=== PATIENT | male | born 1965 | race Asian ===

== ENCOUNTER 2017-06-01 08:20 | Day surgery (SDC) | payer OTHER ==
[2017-06-01 08:24] VITALS: BMI 32.1
--- NOTE | 2017-06-01 08:58 | PDOC ---
History of Present Illness <Zachary Vigil - Last Filed: 06/01/17 13:02> - General History Source: Patient Exam Limitations: No Limitations - History of Present Illness Initial Comments: 06/01/17 10:32 The patient is a 52 year old male, with hypertension and hyperlipidemia, who presents to the emergency department complaining of abdominal pain since last night. The patient reports the pain is diffuse, but worse in the right lower quadrant. Patient reports increased belching and flatulence since the onset of his symptoms. He denies any associated nausea, vomiting, diarrhea, constipation , melena, or hematochezia. Patient states he went to the gym yesterday and lifted some weights. He reports some chest pain, which he relates to exercising , but denies any shortness of breath, diaphoresis, or palpitations. He denies any fever or chills. He denies any dysuria, hematuria, frequency, or urgency. He denies any recent travel or sick contacts. Allergies: None reported Past Surgical History: None reported Social History: Non smoker. No ETOH or drug use. PCP: Dr. Osborne <Riccardo Guerra - Last Filed: 06/01/17 13:58> - General Chief Complaint: Pain, Acute Stated Complaint: PAIN Time Seen by Provider: 06/01/17 08:56 Past History - Past Medical History HTN: Yes Hypercholesterolemia: Yes - Psycho/Social/Smoking Cessation Hx Anxiety: No Suicidal Ideation: No Smoking History: Never smoked Hx Alcohol Use: No Drug/Substance Use Hx: No Substance Use Type: None <Zachary Vigil - Last Filed: 06/01/17 13:02> <Riccardo Guerra - Last Filed: 06/01/17 13:58> - Past Medical History Allergies/Adverse Reactions: Allergies Allergy/AdvReac Type Severity Reaction Status Date / Time No Known Allergies Allergy Verified 06/01/17 08:22 Home Medications: Ambulatory Orders Amlodipine Besylate [Norvasc -] 5 mg PO DAILY 06/01/17 Metoprolol Tartrate [Lopressor -] 25 mg PO DAILY 06/01/17 Simvastatin 20 mg PO DAILY 06/01/17 Review of Systems - Review of Systems Able to Perform ROS?: Yes Comments:: 06/01/17 10:32 Constitutional: Pt denies Fever, Chills, weakness HEENT: Denies vision changes, sore throat Respiratory: Denies cough, sob, hemoptysis Cardiac: Denies palpitations, light headedness, leg swelling Abd/GI: +Reports abdominal pain worse in RLQ, +belching Denies nausea, vomiting , blood per rectum, melena, diarrhea : Denies dysuria, frequency, discharge Musculoskelatal: Denies joint swelling Skin: Denies bruising, erythema, rash Neurological: Denies headache, numbness, focal weakness, tingling, ataxia, weakness Hematologic: Denies anemia, easy bruising, easy bleeding <Guerra,Giomilsy - Last Filed: 06/01/17 13:58> *Physical Exam - Vital Signs Last Vital Signs Temp Pulse Resp BP Pulse Ox 98.3 F 81 18 127/74 98 06/01/17 08:21 06/01/17 08:21 06/01/17 08:21 06/01/17 08:21 06/01/17 08:21 <Musa,Zachary - Last Filed: 06/01/17 13:02> - Vital Signs Last Vital Signs Temp Pulse Resp BP Pulse Ox 98.3 F 81 18 127/74 98 06/01/17 08:21 06/01/17 08:21 06/01/17 08:21 06/01/17 08:21 06/01/17 08:21 - Physical Exam Comments: 06/01/17 10:32 GENERAL: The patient is awake, alert, and fully oriented, Nontoxic - in no acute distress. HEAD: Normocephalic, atraumatic. EYES: extraocular movements intact, sclera anicteric, conjunctiva clear. ENT: Normal voice, Moist mucous membranes. NECK: Normal range of motion, supple LUNGS: Breath sounds equal, clear to auscultation bilaterally. No wheezes, no rhonchi, no rales. HEART: Regular rate and rhythm, normal S1 and S2 without murmur, rub or gallop. ABDOMEN: mild RLQ tenderness, normoactive bowel sounds. No guarding, no rebound. No CVA tenderness EXTREMITIES: Normal range of motion, no edema. No clubbing or cyanosis. No cords, erythema, or tenderness. NEUROLOGICAL: No facial assymetry, Normal speech, moving all 4 extremities spontaneously and symmetrically PSYCH: Normal mood, normal affect. SKIN: Warm, Dry, normal turgor, <Guerra,Giomilsy - Last Filed: 06/01/17 13:58> Heart Score/ECG Review - ECG Impressions Comment:: 06/01/17 11:36 Twelve-lead EKG was performed and reviewed by me. There is normal sinus rhythm with a normal rate. Rate of 73 The axis is normal. The intervals are normal. Q wave in lead 3 <Zachary Vigil - Last Filed: 06/01/17 13:02> ED Treatment Course - LABORATORY CBC & Chemistry Diagram: 06/01/17 10:00 06/01/17 10:00 <Zachary Vigil - Last Filed: 06/01/17 13:02> - LABORATORY CBC & Chemistry Diagram: 06/01/17 10:00 06/01/17 10:00 - RADIOLOGY Radiograph Interpretation: 06/01/17 13:08 EXAM: CT Abdomen and Pelvis INTERPRETED BY: Dr. Flaherty REVIEWED BY: Dr. Vigil IMPRESSION: Findings consistent with acute appendicitis without extraluminal air or abscess formation. Low-attenuation right adrenal mass with mild heterogeneity measuring 2.8 x 2.4 cm. Although statistically it may represent an adrenal adenoma, further evaluation with MRI is needed. Case discussed with Dr. Vigil, emergency room attending physician and Dr. Griffin, surgery attending physician. EXAM: CXR INTERPRETED BY: Dr. Jacobsen REVIEWED BY: Dr. Vigil IMPRESSION: No evidence of active pulmonary disease. - Medications Given in the ED: ED Medications Discontinued Medications Generic Name Dose Route Start Last Admin Trade Name Freq PRN Reason Stop Dose Admin Famotidine/Sodium Chloride 20 50 mls @ 100 mls/hr 06/01/17 09:27 06/01/17 10:09 mg/ Miscellaneous IVPB 06/01/17 09:56 100 mls/hr ONCE ONE Administration Sodium Chloride 500 mls @ 500 mls/hr 06/01/17 09:27 06/01/17 10:09 Normal Saline - IV 06/01/17 10:26 500 mls/hr ASDIR STA Administration <Guerra,Giomilsy - Last Filed: 06/01/17 13:58> Medical Decision Making - Medical Decision Making 06/01/17 09:27 52y M hx of htn, hl, presents with R sided abdominal pain since last night associated with burping. Pt denies any fever/chills, n/v, diarrhea, dysuria, hematuria. on exam pt has midl tenderness in the RLQ, vitals wnl suspect possible appendicits vs gastirits will give pepcid, gentle fluids, will ck labs, ua, ekg A portion of this note was documented by scribe services under my direction. I have reviewed the details of the note, within reason, and agree with the documentation with the following case summary and management plan written by me 06/01/17 11:37 The pts labs were reviewed noted for mild leukocytosis w/o left shift +1 protenuria pt still with RLQ tenderness will obtain CT to r/o appendicitis 06/01/17 12:36 ct noted for early appendicitis case was dw dr.Kant bai wiht mangaement NPO since 6am will give 2g cefoxitin will give fluids OR at 5-6pm Case discussed in detail with admitting physician including history, physical exam and ancillary studies. Admitting physician has assumed care for the patient, will follow all pending diagnostics and will complete the evaluation and treatment. <Zachary Vigil - Last Filed: 06/01/17 13:02> *DC/Admit/Observation/Transfer - Discharge Dispostion Admit: Yes <Zachary Vigil - Last Filed: 06/01/17 13:02> - Attestations Scribe Attestion: 06/01/17 10:33 Documentation prepared by Riccardo Guerra, acting as medical office receptionist for Zachary Vigil MD. <Riccardo Guerra - Last Filed: 06/01/17 13:58> Diagnosis at time of Disposition: Appendicitis Qualifiers: Appendicitis type: acute appendicitis Acute appendicitis type: with localized peritonitis Qualified Code(s): K35.3 - Acute appendicitis with localized peritonitis - Discharge Dispostion Condition at time of disposition: Stable - Referrals
[2017-06-01] MEDS ORDERED: SODIUM CHLORIDE 500 ML IV STA (09:27)
[2017-06-01] MEDS ORDERED: FAMOTIDINE 20 MG/50 ML IVPB 20 MG in PREMIX 50 IVPB ONE (09:27)
[2017-06-01] MEDS ORDERED: FAMOTIDINE 20 MG/50 ML IVPB 50 ML IVPB ONE (10:13)
[2017-06-01 10:24] LABS: BASOPHIL 0.9 % (0-2.0); EOSINOPHIL 1.8 % (0-4.5); MCH 28.8 pg (25.7-33.7); MCHC 34.2 g/dl (32.0-35.9); MEAN CELL VOLUME 84.2 fl (80-96); NEUTROPHILS 69.8 % (42.8-82.8); PLATELET COUNT 238 K/MM3 (134-434); RDW 13.9 % (11.9-15.9); WHITE BLOOD COUNT 10.9 K/mm3 (4.0-10.0)
[2017-06-01 10:38] LABS: URINE APPEARANCE CLEAR; URINE BILIRUBIN NEGATIVE (NEGATIVE); URINE BLOOD NEGATIVE (NEGATIVE); URINE COLOR STRAW; URINE GLUCOSE (UA) NEGATIVE (NEGATIVE); URINE KETONE NEGATIVE (NEGATIVE); URINE LEUK ESTERASE NEGATIVE (NEGATIVE); URINE NITRITE NEGATIVE (NEGATIVE); URINE UROBILINOGEN NEGATIVE mg/dL (0.2-1.0)
[2017-06-01 10:49] LABS: ANION GAP 8 (8-16); BILIRUBIN,TOTAL 1.7 mg/dL (0.2-1.0); CO2 25 mmol/L (21-32); GLUCOSE,RANDOM 99 mg/dL (74-106); SGOT/AST 25 U/L (15-37); SGPT/ALT 38 U/L (12-78); TOT PROT 7.6 g/dl (6.4-8.2)
[2017-06-01 10:50] LABS: ALK PHOS 73 U/L (45-117)
[2017-06-01 10:51] LABS: URINE PROTEIN 1+ (NEGATIVE)
[2017-06-01] MEDS ORDERED: cefOXitin SODIUM 2 GM VIAL (RESTRICTED TO ID) IVPB ONE ×3 (12:49→19:10)
[2017-06-01] MEDS ORDERED: SODIUM CHLORIDE 1,000 ML IV SCH (13:00)
--- NOTE | 2017-06-01 13:06 | EKG ---
Test Reason : Blood Pressure : / mmHG Vent. Rate : 074 BPM Atrial Rate : 074 BPM P-R Int : 150 ms QRS Dur : 082 ms QT Int : 374 ms P-R-T Axes : 024 011 017 degrees QTc Int : 415 ms NORMAL SINUS RHYTHM NORMAL ECG NO PREVIOUS ECGS AVAILABLE Confirmed by ANGELICA CHEATHAM MD ([id number]) on 06/01/2017 1:06:00 PM Referred By: Confirmed By:ANGELICA CHEATHAM MD
[2017-06-01 14:56] LABS: INR 1.09 (0.82-1.09)
[2017-06-01] MEDS ORDERED: CEFOXITIN SODIUM 2 GM in DEXTROSE 5%-WATER - 100 ML IVPB ONE (17:45)
[2017-06-01] MEDS ORDERED: ROCURONIUM BROMIDE 50 MG/5 ML VIAL ONE (17:55)
--- NOTE | 2017-06-01 18:09 | HP ---
Admitting History and Physical - Primary Care Physician PCP: Elvia Osborne - Admission Chief Complaint: RLQ pain History of Present Illness: 52yoM with HTN, HLD, was normal yesterday, worked out at gym from 6-8pm, came home and had dinner, after which he began experiencing vague/generalized abdominal pain that was more in the RLQ. He had no F/C, N/V that night. Somewhat hard BM this morning. This am, he had 3 dates about 6am, but vomited afterward. Pain was more across the lower abdomen and mostly RLQ, so he came to ER. Never had similar pain before. In ER, wbc 10.9, CT shows early acute appendicitis and R adrenal nodule <3cm. His pain is somewhat better than initially. Fluids and antibiotics were started. History Source: Patient Limitations to Obtaining History: No Limitations - Past Medical History Cardiovascular: Yes: HTN, Hyperlipdemia Musculoskeletal: Yes: Chronic low back pain ENT: Yes: Allergic Rhinitis - Past Surgical History Past Surgical History: Yes: None - Smoking History Smoking history: Former smoker Have you smoked in the past 12 months: No Aproximately how many cigarettes per day: 20 (x5yrs, quit 30 yrs ago) If you are a former smoker, when did you quit?: 30 yrs ago - Alcohol/Substance Use Hx Alcohol Use: No History of Substance Use: reports: None Home Medications - Allergies Allergies/Adverse Reactions: Allergies Allergy/AdvReac Type Severity Reaction Status Date / Time No Known Allergies Allergy Verified 06/01/17 08:22 - Home Medications Home Medications: Ambulatory Orders Amlodipine Besylate [Norvasc -] 5 mg PO DAILY 06/01/17 Metoprolol Tartrate [Lopressor -] 25 mg PO DAILY 06/01/17 Simvastatin 20 mg PO DAILY 06/01/17 Home Medications (free text): takes home meds at night - had last night Family Disease History - Family Disease History Family History: Unremarkable Review of Systems - Review of Systems Constitutional: denies: Chills, Fever Eyes: reports: Other (wears reading glasses). denies: Recent Change in Vision HENT: denies: Difficult Swallowing, Nasal Congestion, Throat Pain Cardiovascular: denies: Chest Pain, Palpitations Respiratory: denies: Cough, SOB, SOB on Exertion Gastrointestinal: reports: Abdominal Pain (with hpi), Constipation, Vomiting ( only this morning). denies: Diarrhea, Melena, Rectal Bleeding Genitourinary: reports: Other (nocturia last few nights x2). denies: Burning, Dysuria Musculoskeletal: reports: Back Pain. denies: Joint Swelling Integumentary: denies: Pruritis, Rash Neurological: denies: Dizziness, Headache Endocrine: denies: Unexplained Weight Gain, Unexplained Weight Loss Physical Examination Vital Signs: Vital Signs Temperature 98.3 F 06/01/17 08:21 Pulse Rate 81 06/01/17 08:21 Respiratory Rate 18 06/01/17 08:21 Blood Pressure 127/74 06/01/17 08:21 O2 Sat by Pulse Oximetry (%) 98 06/01/17 08:21 Constitutional: Yes: Well Nourished, No Distress, Calm Eyes: Yes: Conjunctiva Clear, EOM Intact HENT: Yes: Atraumatic, Normocephalic Cardiovascular: Yes: Regular Rate and Rhythm. No: Murmur Respiratory: Yes: Regular, CTA Bilaterally Gastrointestinal: Yes: Soft, Hypoactive Bowel Sounds, Tenderness (RLQ no R/G). No: Distention, Tenderness, Rebound ...Rectal Exam: Yes: Deferred Renal/: No: CVA Tenderness - Left, CVA Tenderness - Right Musculoskeletal: No: Joint Swelling, Muscle Weakness Extremities: No: Cool, Cyanosis Edema: No Peripheral Pulses WNL: Yes Integumentary: No: Jaundice, Rash Neurological: Yes: Alert, Oriented Psychiatric: Yes: Alert, Oriented Labs: CBC, BMP 06/01/17 10:00 06/01/17 10:00 CMP Sodium 139 mmol/L (136-145) 06/01/17 10:00 Potassium 4.2 mmol/L (3.5-5.1) 06/01/17 10:00 Chloride 106 mmol/L (98-107) 06/01/17 10:00 Carbon Dioxide 25 mmol/L (21-32) 06/01/17 10:00 Anion Gap 8 (8-16) 06/01/17 10:00 BUN 13 mg/dL (7-18) 06/01/17 10:00 Creatinine 1.0 mg/dL (0.7-1.3) 06/01/17 10:00 Creat Clearance w eGFR > 60 (>60) 06/01/17 10:00 Random Glucose 99 mg/dL (74-106) 06/01/17 10:00 Calcium 9.0 mg/dL (8.5-10.1) 06/01/17 10:00 Total Bilirubin 1.7 mg/dL (0.2-1.0) H 06/01/17 10:00 AST 25 U/L (15-37) 06/01/17 10:00 ALT 38 U/L (12-78) 06/01/17 10:00 Alkaline Phosphatase 73 U/L (45-117) 06/01/17 10:00 Total Protein 7.6 g/dl (6.4-8.2) 06/01/17 10:00 Albumin 4.0 g/dl (3.4-5.0) 06/01/17 10:00 Lipase 97 U/L (73-393) 06/01/17 10:00 Imaging - Results Cat Scan: Report Reviewed, Image Reviewed (acute appendicitis, R adrenal nodule) Problem List - Problems (1) Acute appendicitis Assessment/Plan: NPO/IVF Cefoxitin periop Discussed R/B/A of laparoscopic possible open appendectomy with patient including but not limited to bleeding, infection, intestinal leak, intraperitoneal abscess, injury to bladder, intestines or adjacent structures; pt is agreeable to operation and signed informed consent for same To OR for lap appy poss open anticipate 23hr/obs stay afterward with resumption of PO and likely d/c home tomorrow pain meds prn DVT prophylaxis - early ambulation, SCDs Code(s): K35.80 - UNSPECIFIED ACUTE APPENDICITIS Qualifiers: Acute appendicitis type: other Qualified Code(s): K35.89 - Other acute appendicitis (2) Adrenal nodule Assessment/Plan: Pt will need to follow up CT finding as outpatient, may need MRI Code(s): E27.9 - DISORDER OF ADRENAL GLAND, UNSPECIFIED (3) HTN (hypertension) Assessment/Plan: continue home meds tonight Code(s): I10 - ESSENTIAL (PRIMARY) HYPERTENSION Qualifiers: Hypertension type: essential hypertension Qualified Code(s): I10 - Essential (primary) hypertension (4) Hyperlipemia Assessment/Plan: continue home meds tonight Code(s): E78.5 - HYPERLIPIDEMIA, UNSPECIFIED Qualifiers: Hyperlipidemia type: unspecified Qualified Code(s): E78.5 - Hyperlipidemia, unspecified
[2017-06-01] MEDS ORDERED: PROPOFOL 20 ML ONE (18:41)
[2017-06-01] MEDS ORDERED: MIDAZOLAM HCL 2 MG/2 ML SINGLE DOSE VIAL ONE (18:41)
[2017-06-01] MEDS ORDERED: BENZOIN/ALOE VERA/STORAX/TOLU 58 ML BOTTLE ONE (19:01)
[2017-06-01] MEDS ORDERED: NEOSTIGMINE METHYLSULFATE 0.5 MG/ML - 10 ML MDV ONE (19:19)
[2017-06-01] MEDS ORDERED: HYDROmorphone HCL/PF 1 MG/ML VIAL (FOR PYXIS CHARGING ONLY) ONE (19:31)
[2017-06-01] MEDS ORDERED: LIDOCAINE HCL 1%, 10 MG/ML (20ML VIAL) IJ ONE (20:08)
[2017-06-01] MEDS ORDERED: BUPIVACAINE HCL/PF 0.5% (5MG/ML) 10 ML VIAL IJ ONE ×2 (20:08)
[2017-06-01] MEDS ORDERED: LIDOCAINE HCL 1%, 10 MG/ML (20ML VIAL) NR ONE (20:08)
[2017-06-01] MEDS ORDERED: ACETAMINOPHEN 325 MG TABLET (FP) PO PRN ×3 (20:35→21:23)
--- NOTE | 2017-06-01 20:35 | OP ---
Operative Note - Note: Operative Date: 06/01/17 Pre-Operative Diagnosis: acute appendicitis Operation: laparoscopic appendectomy Findings: enlarged inflamed appendix with normal base Post-Operative Diagnosis: Same as Pre-op Surgeon: Casey Griffin Anesthesiologist/SUPERVISOR PAPER COATING: Carmen Ballard Anesthesia: General, Local (18ml (1% lidocaine + 0.5% marcaine)) Specimens Removed: appendix to pathology Estimated Blood Loss (mls): 5 Drains & Tubes with Location: Parmar removed at end of case Drains, Volume Out (mls): 200 (UOP) Fluid Volume Replaced (mls): 1,000 (crystalloid) Operative Report Dictated: Yes
[2017-06-01] MEDS ORDERED: LACTATED RINGERS SOLUTION 1,000 ML IV SCH ×2 (20:45→21:00)
[2017-06-01] MEDS ORDERED: OXYCODONE/APAP 5/325MG COMBO TABLET PO PRN (20:45)
[2017-06-01] MEDS ORDERED: HYDROmorphone HCL CARPU-JECT 1 MG/1 ML DISP.SYRIN IVPUSH PRN (20:46)
[2017-06-01] MEDS ORDERED: IBUPROFEN 800 MG/8 ML IJ IVPB PRN (20:46)
[2017-06-01] MEDS ORDERED: ONDANSETRON 4 MG/2 ML VIAL IVPUSH PRN (20:46)
[2017-06-01] MEDS ORDERED: oxyCODONE HCL 5 MG TABLET PO PRN (21:05)
[2017-06-01] MEDS ORDERED: IBUPROFEN 800 MG/8 ML IJ IVPB ONE (21:11)
[2017-06-01] MEDS ORDERED: ATORVASTATIN CA 10 MG TABLET (FP) PO SCH ×2 (22:00→22:45)
[2017-06-01] MEDS ORDERED: METOPROLOL TARTRATE 25 MG TABLET (FP) PO SCH ×2 (22:00)
[2017-06-01] MEDS ORDERED: amLODIPine BESYLATE 5 MG TABLET (FP) PO SCH ×2 (22:00)
[2017-06-02] MEDS ORDERED: cefOXitin SODIUM 2 GM VIAL (RESTRICTED TO ID) IVPB ONE (02:00)
[2017-06-02] MEDS ORDERED: CEFOXITIN SODIUM 2 GM in DEXTROSE 5%-WATER - 100 ML IVPB ONE (02:00)
[2017-06-02] MEDS ORDERED: IBUPROFEN 600 MG TABLET (FP) PO PRN ×2 (05:00)
--- NOTE | 2017-06-02 08:40 | PN ---
Progress Note (short form) - Note Progress Note: 52M POD1 s/p lap appendectomy under [facility]. Pt is doing well, reports minimal pain, AVSS, denies any anesthetic complications.
--- NOTE | 2017-06-02 09:55 | DS ---
Physical Examination Vital Signs: Vital Signs Temperature 98.4 F 06/02/17 06:42 Pulse Rate 72 06/02/17 06:42 Respiratory Rate 20 06/02/17 06:42 Blood Pressure 110/64 06/02/17 06:42 O2 Sat by Pulse Oximetry (%) 98 06/01/17 23:15 Findings/Remarks: Pt seen and examined in bed. Has tolerated breakfast, been up ambulating, voiding freely. Minimal pain, does note some R shoulder discomfort. Notes incisional pain when getting up and moving. No n/v. No flatus or BM yet. Has not used pain meds this am yet. Constitutional: Yes: Well Nourished, No Distress, Calm Eyes: Yes: Conjunctiva Clear, EOM Intact Cardiovascular: Yes: Regular Rate and Rhythm. No: Murmur Respiratory: Yes: Regular, CTA Bilaterally Gastrointestinal: Yes: Soft, Distention (some), Hypoactive Bowel Sounds, Tenderness (mild RLQ and umbilical incisional, no R/G) Edema: No Wound/Incision: Yes: Clean/Dry, Steri Strips (underneath dressings), Dressing Dry and Intact (x3) Neurological: Yes: Alert, Oriented Labs: no new labs Discharge Summary Reason For Visit: APPENDICITIS Current Active Problems Acute appendicitis (Acute) Adrenal nodule (Acute) HTN (hypertension) (Acute) Hyperlipemia (Acute) Procedures: Principal: laparoscopic appendectomy Hospital Course: 52yo M with HTN, HLD admitted yesterday through the ER with less than one day of abdominal pain localizing to RLQ with one episode of vomiting that morning. He had a wbc of 10.[address] findings of acute appendicitis. He was taken to the OR for uneventful laparoscopic appendectomy and resumed po after surgery. Postop , he has voided, ambulated, tolerated breakfast, and has minimal pain. CT also showed incidental right adrenal nodule <3cm. Pt is discharged home in good condition with lifting restrictions and OTC pain meds prn for pain. He is to follow up with me in 2 weeks for postop visit, and with Dr. Dylon díaz for medical followup and workup of adrenal nodule. Condition: Good - Instructions Diet, Activity, Other Instructions: Postoperative instructions: You had a laparoscopic appendectomy on 06/01/[address] Casey Griffin of [facility]. Resume your usual activities gradually, but no heavy exertion or lifting more than 10-15 pounds for 1 month. Remove dressings tomorrow evening; sticky tapes underneath will fall off by themselves. You may shower daily starting then, just pat the incision areas dry. Eat lightly at first, but advance to your usual diet as tolerated. For pain, use Tylenol or ibuprofen every 6 hours as needed. Do not take more than 3000mg of acetaminophen in a day. Take medications as prescribed or indicated on the labeling. Call Dr. Griffin's office at [phone] for your postop appointment (Monday ~ 2 weeks after surgery). Call Dr. Griffin if you have: - increasing pain not responsive to pain medication - fever of 101F or higher - vomiting - unusual or increasing bleeding or drainage from wounds - increasing redness or swelling at wound sites - inability to urinate Your CT scan showed a nodule in your right adrenal gland. See Dr. Osborne within a couple of weeks for followup. Referrals: Elvia Osborne MD [Primary Care Provider] - Disposition: HOME - Home Medications Comprehensive Discharge Medication List: Ambulatory Orders Amlodipine Besylate [Norvasc -] 5 mg PO DAILY 06/01/17 Metoprolol Tartrate [Lopressor -] 25 mg PO DAILY 06/01/17 Simvastatin 20 mg PO DAILY 06/01/17 Use Tylenol and/or ibuprofen (400-600mg) every 6 hours as needed for pain. For constipation, use stool softener (docusate sodium/Colace) 100mg 1-2 times a day as needed. Over the counter laxatives are also ok as needed (bisacodyl 5-10mg), nightly if no BM that day.
[2017-06-02 11:12] VITALS: BP 118/65; PULSE 73; TEMP 98.9
--- NOTE | 2017-06-03 17:23 | HP ---
DATE OF ADMISSION: DATE OF DICTATION: 06/03/2017 HISTORY OF PRESENT ILLNESS: This is a 52-year-old male known to have hypertension, hyperlipidemia, came to the emergency room with right lower quadrant pain. In the ER, it was diagnosed as the patient having acute appendicitis, scheduled for appendectomy. SOCIAL HISTORY: He is employed. He is working. He has a family, and children. Not a smoker. ALLERGIES: No known allergies. PHYSICAL EXAMINATION: Vital Signs: At present, BP 130/80, pulse 72, respirations 20, temperature 98. HEENT: Unremarkable. Neck: Supple. No JVD. Lungs: Clear. Heart: S1, S2 normal. No S3 or S4. Abdomen: There is tenderness in the McBurney point. Legs: No edema. Neurologic: Grossly normal. LABORATORY DATA: WBC 10.9, hemoglobin 13.9, hematocrit 40.8, platelets 238. Chemistry: Sodium 139, potassium 4.2, chloride 106, CO2 25, BUN 13, creatinine 1. Total bilirubin 1.7. Chest x-ray negative. Abdominal CT consistent with acute appendicitis. No abscess formation. EKG shows normal sinus rhythm. FINAL DIAGNOSES: Acute appendicitis, hypertension, hyperlipidemia. Cleared for surgery under general anesthesia. No medical contraindication if surgeon wants to take the patient to the operating room. KRISHNA SORENSEN M.D. 1 PATRICIA/[id number]
--- NOTE | 2017-06-04 20:50 | OP ---
DATE OF OPERATION: 06/01/2017 PREOPERATIVE DIAGNOSIS: Acute appendicitis. POSTOPERATIVE DIAGNOSIS: Acute appendicitis. PROCEDURE: Laparoscopic appendectomy. SURGEON: Casey Griffin MD ANESTHESIA: General endotracheal and local (18 mL of 1% lidocaine plus 0.5% Marcaine). ESTIMATED BLOOD LOSS: 5 mL FLUIDS: 1 L of crystalloid. URINE OUTPUT: 200 mL (Parmar removed at end of case). SPECIMEN: Appendix to Pathology. FINDINGS: An enlarged inflamed appendix with a normal base. DISPOSITION: Stable and extubated to PACU. INDICATIONS FOR PROCEDURE: The patient is a 52-year-old male with hypertension and hyperlipidemia, who began experiencing central abdominal pain last night, that then localized to the right lower quadrant, got worse overnight into the morning, associated with an episode of vomiting after a small amount of p.o. this morning early. No fever and chills. No nausea and vomiting. In the emergency room, his white count was 10.9 thousand, and a CT did show early acute appendicitis with a dilated appendix and periappendiceal inflammatory changes and also, an incidental right adrenal nodule just under 3 cm in size. Fluids and antibiotics were started, and he is brought to the operating room for laparoscopic, possible open appendectomy. Risks, benefits, and alternatives of the procedure were discussed with the patient including, but not limited to, bleeding; infection; intestinal leak; intraabdominal abscess; injury to the intestines, bladder, or other adjacent structures. OPERATIVE TECHNIQUE: The patient is brought to the operating room and laid supine on the operating table. Sequential compression devices are applied to bilateral lower extremities, and his next dose of 2 g of cefoxitin is administered immediately preoperatively in the operating room. After induction and intubation by Anesthesia, a Parmar catheter is placed into the bladder, which is removed at the end of the case. His abdomen is clipped of hair, and the lower abdomen is prepped with ChloraPrep and draped in sterile fashion. A small infraumbilical incision is made with a scalpel and carried into subcutaneous tissues with electrocautery until the abdominal wall fascia is identified, scored, and elevated with Marsha clamps. The abdomen is entered bluntly with the tip of a clamp, and entry into the peritoneal cavity is ensured with a fingertip. There were no underlying adhesions appreciated. A stay stitch of 0 Vicryl was then placed in the fascia in figure-of-8 fashion for later closure, and Sonya trocar introduced directly into the abdominal cavity and secured in place with a balloon. The abdomen was insufflated with carbon dioxide, and a 5-mm 30-degree laparoscope was inserted to inspect the abdominal cavity. The patient was placed in Trendelenburg position, and 2 additional 5-mm ports were placed in the suprapubic and left lower quadrant areas under direct vision. Two graspers were used to gently manipulate the small bowel medially and away from the right lower quadrant. The appendix was then identified coming off of the cecum in the right lower quadrant and noted to be inflamed and enlarged but with a normal-appearing base. The appendix was grasped with a left-hand grasper. The camera was switched to the left lower quadrant port, and a Maryland used in the right hand through the umbilical port to create a window at the base of the appendix where it joined the cecum. An Endo BERNA stapler with a blue load was then introduced into the Sonya port and used to transect the base of the appendix. There was no bleeding noted at the staple line. The appendix was then re-grasped, and Endo BERNA stapler with a white load was used to transect the mesoappendix. There were 2 small spots of oozing blood from the staple line. In this case, the Maryland with cautery attached was used to gently cauterize the bleeding spots distal to the staple line with complete hemostasis achieved. The appendix was set aside momentarily, and the suction alto singer used to irrigate the operative field and ensure no bleeding was present. The fluid was suctioned clear, and the pelvis was inspected briefly with no significant amount of fluid noted to be suctioned up from there. The appendix was then placed in an Endo Catch bag through the umbilical port site and retrieved out. The patient was returned to neutral position, and the omentum was drawn over toward the right lower quadrant operative site. The suprapubic 5-mm port was removed under direct vision with a finger in the umbilical site to maintain pneumoperitoneum briefly, and then, the left lower quadrant port was also removed with the camera. The abdomen was exsufflated of carbon dioxide, and the stay suture at the umbilical site was tied to close the fascia there. Port sites were irrigated with saline solution, and hemostasis was achieved with electrocautery where needed. Skin was then closed with 4-0 Vicryl subcuticular sutures. Benzoin and Steri-Strips were applied to the incisions which were then covered with gauze and Tegaderm. The Parmar catheter was removed from the patient's bladder. Counts were correct at the end of the procedure. The patient was then awakened and extubated by Anesthesia, moved back to his stretcher, and returned to the recovery room in stable condition, having tolerated the procedure well. Casey Griffin M.D. [id number]
--- NOTE | 2017-06-05 12:42 | PATH ---
Surgical Pathology Report Patient Name: CASS BECERRA [facility]. Rec. #: [id number] /Age/Gender: 1965 (Age: 52) / M Account: [id number] Location: AMBULATORY SURG Taken: 06/02/2017 Received: 06/02/2017 Reported: 06/05/2017 Physicians: Casey Griffin M.D. Specimen(s) Received APPENDIX Clinical History Appendicitis Final Diagnosis APPENDIX, APPENDECTOMY: ACUTE APPENDICITIS AND PERIAPPENDICITIS. Electronically Signed Johann Rohce M.D. Gross Description Received in formalin, labeled "appendix" is a 8 cm in length vermiform appendix with a stapled margin of resection and moderate attached fat. The serosa is read-pink and smooth. Sectioning reveals an unremarkable lumen. The wall of the appendix averages 0.1 cm in thickness. Avionics Supervisor sections are submitted in one cassette. /06/02/201706/02/2017
== END 2017-06-02 11:35 | disposition home or self-care (01) ==
LOC: JER 08:20 → JASUSAT 12:50 → JSAMEDAYSX 18:00 → J8W 22:46 → JASUSAT 06-02 11:35
PROVIDERS: ATTEND Surgery
PROC: 0DTJ4ZZ Resection of Appendix, Percutaneous Endoscopic Approach (ICD-10-PCS; principal; 2017-06-01 19:00)
DX: K35.89 Other acute appendicitis (principal); I10 Essential (primary) hypertension; E78.4 Other hyperlipidemia
CPT/HCPCS: 36415; 71020-TC; 74177-TC; 80053; 81003; 81015; 83690; 85025; 85610; 86850; 86900; 86901; 88304-TC; 93005; 93010; 94760; 99284-25

== ENCOUNTER 2017-08-09 07:13 | Emergency (ER) | payer OTHER ==
[2017-08-09 07:19] VITALS: TEMP 98.6; BMI 30.9
[2017-08-09] MEDS ORDERED: KETOROLAC TROMETHAMINE 60 MG/2 ML VIAL IM ONE (07:53)
--- NOTE | 2017-08-09 07:53 | PDOC ---
History of Present Illness - General Chief Complaint: Back Pain Stated Complaint: LOWER RIGHT SIDE PAIN Time Seen by Provider: 08/09/17 07:42 History Source: Patient Exam Limitations: No Limitations - History of Present Illness Initial Comments: 08/09/17 07:57 52 yr male history of HTN, high cholesterol presents with right buttock pain radiates to thigh causing tingling to foot. Pt has history of low back pain works long hours as refrigerated national truck driver. Pt denies abd pain no fever or chills. no urine or bowel dysfunction. Pt states pain is worse with turning over in bed and driving with right leg. Past History - Past Medical History Allergies/Adverse Reactions: Allergies Allergy/AdvReac Type Severity Reaction Status Date / Time No Known Allergies Allergy Verified 08/09/17 08:15 Home Medications: Ambulatory Orders Amlodipine Besylate [Norvasc -] 5 mg PO HS 06/01/17 Simvastatin 20 mg PO HS 06/01/17 Gabapentin 200 mg PO HS 08/09/17 Naproxen [Naprosyn -] 500 mg PO PRN PRN 08/09/17 HTN: Yes Hypercholesterolemia: Yes Other medical history: low back pain - Surgical History Appendectomy: Yes - Suicide/Smoking/Psychosocial Hx Smoking History: Never smoked Have you smoked in the past 12 months: No Number of Cigarettes Smoked Daily: 20 (x5yrs, quit 30 yrs ago) If you are a former smoker, when did you quit?: 30 yrs ago Hx Alcohol Use: No Drug/Substance Use Hx: No Substance Use Type: None Trauma Specific PMHX - Complaint Specific PMHX Arthritis: No Back Injury: No Neck Injury: No Hx Sacro Iliac Joint Dysfunction: No Review of Systems - Review of Systems Able to Perform ROS?: Yes Is the patient limited Slovak proficient: No Constitutional: No: Symptoms Reported HEENTM: No: Symptoms Reported Respiratory: No: Symptoms reported Cardiac (ROS): No: Symptoms Reported ABD/GI: No: Symptoms Reported : No: Symptoms Reported Musculoskeletal: Yes: See HPI *Physical Exam - Vital Signs Last Vital Signs Temp Pulse Resp BP Pulse Ox 98.6 F 74 20 129/75 98 08/09/17 07:16 08/09/17 07:16 08/09/17 07:16 08/09/17 07:16 08/09/17 07:16 - Physical Exam General Appearance: Yes: Nourished, Appropriately Dressed HEENT: positive: EOMI, JEROME, Normal ENT Inspection, TMs Normal, Pharynx Normal Neck: positive: Supple Respiratory/Chest: positive: Lungs Clear, Normal Breath Sounds Cardiovascular: positive: Regular Rhythm, Regular Rate Gastrointestinal/Abdominal: positive: Normal Bowel Sounds, Soft. negative: Tender Rectal Exam: positive: deferred Lymphatic: negative: Adenopathy Musculoskeletal: positive: Normal Inspection, Other (TTP right buttock at sciatica nerve ). negative: CVA Tenderness, CVA Tenderness (R), CVA Tenderness (L), Decreased Range of Motion, Muscle Spasm, Vertebral Tenderness Extremity: positive: Normal Capillary Refill, Normal Inspection, Normal Range of Motion, Other (positive left SLR pain at 30 degrees ). negative: Tender, Swelling, Calf Tenderness Integumentary: positive: Normal Color, Dry, Warm Neurologic: positive: Fully Oriented, Alert, Normal Mood/Affect, Normal Response , Motor Strength 5/5, Finger to Nose (intact ). negative: Numbness, Sensory Deficit Medical Decision Making - Medical Decision Making 08/09/17 07:59 cc: right buttock pain to thigh causing numbness and tingling to foot pt is ambualtory steady gait neg saddle anesthesia neg bowel or bladder incontinence no fever or chills will get lumbar spine xray toradol for pain pt has appt in 2 days with the orthopedist *DC/Admit/Observation/Transfer Diagnosis at time of Disposition: Sciatica of right side - Discharge Dispostion Condition at time of disposition: Improved - Referrals Referrals: Elvia Osborne MD [Primary Care Provider] - Rick Rosen MD [Staff Physician] - - Patient Instructions Additional Instructions: keep appointment MONDAY with the orthopedist apply warm compresses to the lower back, right buttock every 4hrs for 20 minutes avoid heavy lifting bending or driving long periods of time as this can make symptoms worse take the toradol as prescribed for pain apply the lidoerm patch to the area of pain as directed Return to ER for any worsening symptoms, severe pain, incontinence of bowel or bladder or any other concerns
[2017-08-09] MEDS ORDERED: KETOROLAC TROMETHAMINE 60 MG/2 ML VIAL ONE (08:19)
[2017-08-09 14:25] VITALS: BP 126/74; PULSE 70
== END 2017-08-09 09:23 | disposition home or self-care (01) ==
LOC: JER 07:13
PROC: 3E0233Z Introduction of Anti-inflammatory into Muscle, Percutaneous Approach (ICD-10-PCS; principal; 2017-08-09)
DX: M54.31 Sciatica, right side (principal); X58.XXXA Exposure to other specified factors, initial encounter; Y93.89 Activity, other specified; Y92.9 Unspecified place or not applicable; I10 Essential (primary) hypertension; E78.00 Pure hypercholesterolemia, unspecified
CPT/HCPCS: 72100-TC; 96372; 99282-25

== ENCOUNTER 2018-06-25 15:48 | Emergency (ER) | payer OTHER ==
[2018-06-25 16:14] VITALS: BP 138/77; PULSE 82; TEMP 98.5; BMI 31.9
--- NOTE | 2018-06-25 16:22 | PDOC ---
Rapid Medical Evaluation Chief Complaint: Headache Time Seen by Provider: 06/25/18 16:14 Medical Evaluation: Allergies Allergy/AdvReac Type Severity Reaction Status Date / Time No Known Allergies Allergy Verified 08/09/17 08:15 Vital Signs Temp Pulse Resp BP Pulse Ox 98.5 F 82 18 138/77 96 06/25/18 16:11 06/25/18 16:11 06/25/18 16:11 06/25/18 16:11 06/25/18 16:11 06/25/18 16:18 complain: Patient with h/o HPL,DM and HTN present with complains of Headache, nausea and dizziness of sudden onset this afternoon. Denies abdominal pains, vomiting. report PARISI has decreased but still persists. pt did not take anything for the pain exam: pt in NAD. lungs: CTA B/L. heart: RRR. abd: soft NT/ND order: none f/u patient will proceed to ED for further evaluation Discharge Disposition - Diagnosis Headache Qualifiers: Headache type: unspecified Headache chronicity pattern: acute headache Intractability: not intractable Qualified Code(s): R51 - Headache - Referrals - Patient Instructions - Post Discharge Activity
[2018-06-25] MEDS ORDERED: ACETAMINOPHEN 500 MG TABLET (FP) PO ONE (17:04)
[2018-06-25] MEDS ORDERED: RANITIDINE HCL 150 MG TABLET (FP) PO ONE (17:04)
[2018-06-25] MEDS ORDERED: MECLIZINE HCL 25 MG TABLET (FP) PO ONE (17:04)
[2018-06-25] MEDS ORDERED: MECLIZINE HCL 12.5 MG TABLET ONE (17:07)
[2018-06-25] MEDS ORDERED: RANITIDINE HCL 150 MG TABLET (FP) ONE (17:08)
[2018-06-25] MEDS ORDERED: ACETAMINOPHEN 500 MG TABLET (FP) ONE (17:08)
--- NOTE | 2018-06-25 17:09 | PDOC ---
History of Present Illness - General Chief Complaint: Headache Stated Complaint: HEADACHE, ABD PAIN Time Seen by Provider: 06/25/18 16:14 - History of Present Illness Initial Comments: 53-year-old male with a past medical history significant for hypertension and dyslipidemia presents for evaluation of headache and dyspepsia 3 hours. He has taken nothing for his symptoms. He describes his headache as frontal exacerbated with motion associated with the room spinning around him. Mild nausea no vomiting no visual changes. No chest pain shortness of breath. 06/25/18 17:05 Past History - Past Medical History Allergies/Adverse Reactions: Allergies Allergy/AdvReac Type Severity Reaction Status Date / Time No Known Allergies Allergy Verified 06/25/18 17:06 Home Medications: Ambulatory Orders Amlodipine Besylate [Norvasc -] 5 mg PO HS 06/01/17 Simvastatin 20 mg PO HS 06/01/17 Gabapentin 200 mg PO HS 08/09/17 Naproxen [Naprosyn -] 500 mg PO PRN PRN 08/09/17 Meclizine HCl 25 mg PO BID PRN #10 tablet 06/25/18 Ranitidine HCl [Zantac 75] 75 mg PO DAILY #10 tablet 06/25/18 COPD: No HTN: Yes Hypercholesterolemia: Yes - Surgical History Appendectomy: Yes - Suicide/Smoking/Psychosocial Hx Smoking History: Former smoker Have you smoked in the past 12 months: No Number of Cigarettes Smoked Daily: 0 If you are a former smoker, when did you quit?: 30 yrs ago Information on smoking cessation initiated: No Hx Alcohol Use: No Drug/Substance Use Hx: No Substance Use Type: None Review of Systems - Review of Systems ABD/GI: Yes: Indigestion Neurological: Yes: Headache, Dizziness All Other Systems: Reviewed and Negative *Physical Exam - Vital Signs Last Vital Signs Temp Pulse Resp BP Pulse Ox 98.5 F 82 18 138/77 96 06/25/18 16:11 06/25/18 16:11 06/25/18 16:11 06/25/18 16:11 06/25/18 16:11 - Physical Exam Comments: HEAD: NC/AT EYES: Conjuntiva clear Ears: Canals and TM's normal NOSE: No d/c THROAT: Moist mucous membrances, oral pharanx clear, uvula midline NECK: Supple without adenopathy CARDIAC: S1 S2 LUNGS: CTA Full and Equal breath sounds ABDOMEN: Soft NT ND MS: Full ROM in all joints without edema NEUROLOGIC: No gross sensory or motor deficits, NVID SKIN: Normal color and temperature no lesions or rashes 06/25/18 17:08 Medical Decision Making - Medical Decision Making I will treat him for a headache dyspepsia and vertiginous symptoms. If he does not improve I will work him up. 06/25/18 17:08 06/25/18 17:47 His dyspepsia and vertiginous symptoms have been relieved with meclizine and Zantac. I will give him prescriptions to go and have him follow-up with his primary care physician. *DC/Admit/Observation/Transfer Diagnosis at time of Disposition: Vertigo, GERD (gastroesophageal reflux disease) Headache Qualifiers: Headache type: unspecified Headache chronicity pattern: acute headache Intractability: not intractable Qualified Code(s): R51 - Headache - Discharge Dispostion Disposition: HOME Condition at time of disposition: Improved Decision to Admit order: No - Referrals Referrals: Elvia Osborne MD [Primary Care Provider] - - Patient Instructions Printed Discharge Instructions: Vertigo, DI for Vertigo, DI for Gastroesophageal Reflux Disease (GERD) Additional Instructions: Return to the emergency room should symptoms come back. Follow-up with her primary care physician once 2 days for further evaluation and treatment options. Please take the medication as directed. - Post Discharge Activity
== END 2018-06-25 17:59 | disposition home or self-care (01) ==
LOC: JERFT 15:48
DX: K21.9 Gastro-esophageal reflux disease without esophagitis (principal); R51 Headache; R42 Dizziness and giddiness; Z87.891 Personal history of nicotine dependence; E78.00 Pure hypercholesterolemia, unspecified; I10 Essential (primary) hypertension
CPT/HCPCS: 99281-25

== ENCOUNTER 2022-05-03 11:46 | Emergency (ER) | payer OTHER ==
[2022-05-03 11:55] VITALS: BP 132/87; PULSE 76; TEMP 98.8; BMI 31.0
[2022-05-03] MEDS ORDERED: ACETAMINOPHEN 325 MG TABLET (FP) PO ONE (12:06)
[2022-05-03] MEDS ORDERED: ACETAMINOPHEN 325 MG TABLET (FP) ONE (12:10)
== END 2022-05-03 12:17 | disposition home or self-care (01) ==
LOC: SUPCPDRO 11:46 → FER 11:46
DX: R04.0 Epistaxis (principal); S00.31XA Abrasion of nose, initial encounter; Y99.9 Unspecified external cause status
CPT/HCPCS: 99283-25